=== PATIENT | female | born 1990 | race Caucasian/White ===

== ENCOUNTER 2016-11-18 07:21 | Inpatient (IN) | payer OTHER ==
[~2016-11-18] VITALS: Ht 167.6 cm; Wt 74.8 kg
--- NOTE | ~2016-11-18 | OR ---
PATIENT'S NAME: SUKHI DOSHI [facility] AGE: 26 Y [address] ROOM: [place] [address] LOCATION: GOBS ADMIT DATE: 11/18/2016 OR/Procedure Report DISCHARGE DATE: FAMILY PHYSICIAN: Jennifer Byrne MD ATTENDING PHYSICIAN: Aleisha Lind SURGEON: Aleisha Lind MD TELESALES SUPERVISOR: DATE OF PROCEDURE: 11/18/2016 PREOPERATIVE DIAGNOSES: 1. Intrauterine at 39 weeks. 2. Labor. POSTOPERATIVE DIAGNOSES: 1. Intrauterine at 39 weeks. 2. Labor. PROCEDURE PERFORMED: Spontaneous vaginal delivery. ESTIMATED BLOOD LOSS: 300 mL. ANESTHESIA: Epidural. FINDINGS: Male infant. scores 8 and 9. Weight 6 pounds 15 ounces. Intact placenta, 3-vessel cord. Clear amniotic fluid. Second-degree perineal laceration. INDICATIONS: This patient is a 26-year-old G6, P1-0-4-1 female. She presented to Labor and Delivery in labor. Her was uncomplicated. She had artificial rupture of membranes and Pitocin augmentation. She progressed along a faster than normal labor curve to complete. She underwent expulsive efforts for just a few contractions. DESCRIPTION OF PROCEDURE: With expulsive effort, the head delivered over an intact perineum. The rest of the fetus was delivered. The nose and mouth were bulb suctioned. The cord was clamped and cut. The was handed to the awaiting team. Cord blood was drawn. Cord pH was drawn. The placenta was delivered with manual traction. Cervix, vagina, and perineum were examined. A second-degree perineal laceration was noted. It was repaired in the standard fashion with Vicryl suture. COMPLICATIONS: None. CONDITION: Mother stable in room. to [facility]. PATIENT'S NAME: SUKHI DOSHI [facility] AGE: 26 Y [address] ROOM: [place] [address] LOCATION: BS ADMIT DATE: 11/18/2016 OR/Procedure Report DISCHARGE DATE: FAMILY PHYSICIAN: Jennifer Byrne MD ATTENDING PHYSICIAN: Aleisha Lind MD SHIRLENE ROSALESJ/modl /[id number] d: 11/18/16 1815 t: 11/25/16 0947, OPERATIVE SUMMARY
[~2016-11-18 07:21] MED LIST: PRENATAL 1+1)(P1 TAB PO
[2016-11-18 10:00] LABS: BASOPHIL % 0.3 %; EOSINOPHIL # 0.1 K/uL (0.0-0.5); EOSINOPHIL % 1.4 %; HEMATOCRIT 38.1 % (33.0-46.0); IMMATURE GRANULOCYTE % 0.4 %; LYMPHOCYTE # 1.9 K/uL (0.8-4.0); LYMPHOCYTE % 19.6 %; MCH 30.7 pg (27.0-34.0); MCHC 34.1 gm/dL (32.0-36.5); MCV 90.1 fl (83.0-98.0); MONOCYTE # 0.6 K/uL (0.0-1.0); MONOCYTE % 6.4 %; MPV 12.2 fl (9.4-12.4); NEUTROPHIL # (ANC) 6.8 K/uL (1.8-7.8); NEUTROPHIL % 71.9 %; NRBC % 0 /100WBC (0-0.00); PLATELET COUNT 151 K/uL (150-450); RBC 4.23 M/uL (3.50-5.00); RDW-CV 14.3 % (11.9-14.6); WBC 9.5 K/uL (4.0-11.0)
[2016-11-18] MEDS ORDERED: TUMS200 MG PO (12:32)
[2016-11-18 14:34] LABS: BICARBONATE 27.4 mmol/L (18.0-23.0); PCO2 64 mmHg (35-45); PO2 12 mmHg (80-90)
--- NOTE | 2016-11-18 17:55 | NUR ---
11/18/16 1730: Had 1 Percocet and Motrin at 1647. Needs Robert.
--- NOTE | 2016-11-19 04:46 | NUR ---
Last VS: T:97.9 P:65 R: 16 BP: 105/67 Pain ratin Last pain med: Percocet Medicated at: 2048 Effective: Yes Breasts: Soft Nipples: Intact Fundus: 1 FB above umbilicus, midline, firm Lochia: Rubra, small amounts Epis/Perineum: Voiding well: Yes Significant event: VSS. Up independently. No issues.
[2016-11-19 05:09] LABS: BASOPHIL % 0.3 %; EOSINOPHIL # 0.2 K/uL (0.0-0.5); EOSINOPHIL % 1.6 %; HEMOGLOBIN 10.1 g/dL (11.0-15.0); IMMATURE GRANULOCYTE # 0.1 K/uL (0.0-0.3); IMMATURE GRANULOCYTE % 0.4 %; LYMPHOCYTE # 2.3 K/uL (0.8-4.0); LYMPHOCYTE % 20.3 %; MCH 30.2 pg (27.0-34.0); MCV 89.8 fl (83.0-98.0); MONOCYTE # 0.6 K/uL (0.0-1.0); MONOCYTE % 5.1 %; MPV 12.5 fl (9.4-12.4); NEUTROPHIL # (ANC) 8.3 K/uL (1.8-7.8); NEUTROPHIL % 72.3 %; NRBC % 0 /100WBC (0-0.00); RBC 3.34 M/uL (3.50-5.00); RDW-CV 14.1 % (11.9-14.6); WBC 11.5 K/uL (4.0-11.0)
[2016-11-19 05:10] LABS: MCHC 33.7 gm/dL (32.0-36.5); PLATELET COUNT 119 K/uL (150-450)
--- NOTE | 2016-11-20 05:45 | NUR ---
VSS, fundus firm, lochia small, did pass large clot yesterday but nothing since. emtpying bladder without difficulty. nurses on demand. last pain meds were percocet and motrin at 0430 for cramping. home today.
[2016-11-20] MEDS ORDERED: MOTRIN800 MG PO (10:47)
[2016-11-20] MEDS ORDERED: PERCOCET 5-3251 EACH PO (10:48)
== END 2016-11-20 13:15 | disposition disaster alternative care site (69) | DRG 775 ==
LOC: GOBS 07:21 → GOBM 07:21 → GOBS 07:22 → GOBM 11-25 06:22
PROVIDERS: ADMIT Obstetrics & Gynecology
PROC: 0KQM0ZZ Repair Perineum Muscle, Open Approach (ICD-10-PCS; principal; 2016-11-19)
PROC: 10E0XZZ Delivery of Products of Conception, External Approach (ICD-10-PCS; principal; 2016-11-19)
PROC: 10907ZC Drainage of Amniotic Fluid, Therapeutic from Products of Conception, Via Natural or Artificial Opening (ICD-10-PCS; principal; 2016-11-19)
DX: O70.1 Second degree perineal laceration during delivery (principal); Z37.0 Single live birth; Z3A.39 39 weeks gestation of pregnancy
CPT/HCPCS: J2590; J7120